=== PATIENT | male | born 1955 | race Caucasian/White ===

== ENCOUNTER 2016-03-17 11:35 | Outpatient (CLI) | payer OTHER, SELFPAY | END 2016-03-17 11:36 | disposition home or self-care (01) | LOC: NAVSJIPCSP 11:35 | PROVIDERS: ATTEND Internal Medicine | DX: E78.5 Hyperlipidemia, unspecified (principal); J30.9 Allergic rhinitis, unspecified | CPT/HCPCS: 36415; 80061 ==

== ENCOUNTER 2016-06-16 09:16 | Outpatient (CLI) | payer OTHER | END 2016-06-16 09:17 | disposition home or self-care (01) | LOC: NAVSJIPCSP 09:16 | PROVIDERS: ATTEND Internal Medicine | DX: E78.5 Hyperlipidemia, unspecified (principal) | CPT/HCPCS: 36415; 80061 ==